=== PATIENT | female | born 1995 | race Caucasian/White ===

== ENCOUNTER → 2017-03-20 | Outpatient (CLI) | payer BC, OTHER | LOC: M SMT 10:12 | PROVIDERS: ATTEND Physician Assistant | DX: Z72.51 High risk heterosexual behavior (principal) ==

== ENCOUNTER → 2017-09-10 | Outpatient (REF) | payer BC, OTHER | LOC: M SFHCWAGY 15:42 | PROVIDERS: ATTEND Nurse Practitioner Women's Health | DX: Z11.3 Encounter for screening for infections with a predominantly sexual mode of transmission (principal) ==

== ENCOUNTER → 2020-02-15 | Outpatient (CLI) | payer BC, OTHER | LOC: M LABSMTC 14:02 | PROVIDERS: ATTEND Family Medicine | DX: Z03.818 Encounter for observation for suspected exposure to other biological agents ruled out (principal); Z11.59 Encounter for screening for other viral diseases | CPT/HCPCS: C9803; U0003 ==